=== PATIENT | male | born 1955 | race Caucasian/White ===

== ENCOUNTER → 2016-11-04 | Outpatient (CLI) | payer MEDICARE ==
--- NOTE | ~2016-11-04 | CR63 ---
[facility] A Service of [facility] RADIOLOGY TEXT RESULTS PATIENT: CRESCENCIO DUMONT LOCATION: [facility] : 51 UNIT #: [id number] AGE: [address]: Tashi Mcneill MD SEX: M ORDER DR: [id number] [facility]. [place], [place] [address] [id number] MR#: [id number] Acc #: [id number] NAME: CRESCENCIO DUMONT : 1955 SEX: M STUDY DATE/TIME: 11/04/2016 11:33 UNIT: [facility] ROOM: STUDY DESCRIPTION: CR Chest 2 View Attending Physician: Tashi Mcneill M.D. Referring Physician: Tashi Mcneill M.D. Ordering Physician: Tashi Mcneill M.D. Primary Care Physician: No Primary Care Physician MEDICAL IMAGING REPORT This report is preliminary unless electronic signature is present EXAM PA and lateral chest. DATE 11/04/2016 HISTORY Shortness of breath, cough and congestion today. Diagnosed with the flu. Diabetes. Hypertension. COMPARISON None FINDINGS Study is mildly attenuated by body habitus. No acute airspace disease is appreciated. Heart size is within normal limits. No pleural effusion or pneumothorax is identified. Confluent osteophyte formation is demonstrated within the thoracic spine suggesting features of diffuse idiopathic skeletal hyperostosis. IMPRESSION No acute chest findings. Dictated by... Do Kohli M.D. THIS IS AN ELECTRONICALLY VERIFIED REPORT Do Kohli M.D. at 11/05/2016 9:41 AM [facility]/allie TD: 11/04/2016 14:48 [facility] A Service of [facility] RADIOLOGY TEXT RESULTS PATIENT: CRESCENCIO DUMONT LOCATION: [facility] : 51 UNIT #: [id number] AGE: [address]: Tashi Mcneill MD SEX: M ORDER DR: QUINTON #: [id number] MEDICAL IMAGING REPORT Page 1 of 1 COPY
== END | disposition home or self-care (01) ==
LOC: CRAD 11:23
DX: R06.02 Shortness of breath (principal); E11.9 Type 2 diabetes mellitus without complications; I10 Essential (primary) hypertension
CPT/HCPCS: 71020